=== PATIENT | female | born 1960 | race Caucasian/White ===

== ENCOUNTER 2019-02-28 08:58 | Day surgery (SDC) | payer BC ==
[2019-02-28] MEDS ORDERED: Lactated Ringers 1,000 ML IV SCH (09:15)
[2019-02-28] MEDS ORDERED: Sodium Chloride 0.9% 10 ML Syringe FLUSH PRN (09:15)
[2019-02-28] MEDS ORDERED: Midazolam 1 MG/ML 2 ML SDV ONE (09:42)
[2019-02-28] MEDS ORDERED: Propofol 200 MG/20 ML SDV ONE ×3 (09:42→10:10)
[2019-02-28] MEDS ORDERED: Ketamine 200 MG/20 ML MDV ONE (10:02)
[2019-02-28] MEDS ORDERED: Midazolam 1 MG/ML 2 ML SDV IV ONE (10:42)
[2019-02-28] MEDS ORDERED: Ondansetron 4 MG/2 ML SDV IV ONE (10:42)
[2019-02-28] MEDS ORDERED: Ketamine 200 MG/20 ML MDV IV ONE (10:42)
[2019-02-28] MEDS ORDERED: Propofol 200 MG/20 ML SDV IV ONE (10:42)
--- NOTE | 2019-02-28 12:43 | PCM.PRNOTE ---
- Free Text/Narrative Note: PROCEDURE PERFORMED: Colonoscopy with biopsy PRE-PROCEDURE DIAGNOSIS/INDICATION FOR PROCEDURE: +FIT, no hx of colonoscopy CONSENT: Informed consent was obtained prior to the procedure after discussion of the risks (including pain, bleeding, infection, perforation, missed polyps, inability to completely remove polyps necessitating repeat colonoscopy, adverse reaction to anesthesia, cardiovascular event), benefits and alternatives and expected outcomes. The patient expressed understanding and wished to proceed. Verbal consent given and consent form signed. PROCEDURAL PAUSE: Completed SEDATION: Per anesthesia DESCRIPTION OF PROCEDURE: Patient was placed in the left lateral decubitus position. After adequate sedation and anesthetic was administered, a rectal exam was performed revealing no abnormalities. A lubricated Olympus Video Colonoscope was inserted into the rectum and air insufflation was performed. The colonoscope was advanced through the rectum, sigmoid, descending, transverse, and ascending colon without difficulties. The cecum was reached and the ileocecal valve as well as the appendiceal orifice were identified and pictorially documented. After adequate visualization of the cecum, the scope was withdrawn, giving 360-degree views of the colonic mucosa and retroflexion was performed in the rectum with the following findings noted: Ileocecal valve: Normal Cecum: Normal Ascending colon: Normal Hepatic flexure: Normal Transverse colon: Normal Splenic flexure: Normal Descending colon: [id number] mouth diverticuli Sigmoid colon: [id number] mouth diverticuli Rectum: One <0.5cm polyp removed with cold forceps with complete removal and subsequent hemostasis noted The scope was straightened, air suction performed, and the scope withdrawn without complication. Preparation adequacy good. IMPRESSION: Colonoscopy performed revealing: - One <0.5cm rectal polyp, pathology now pending - Descending and sigmoid diverticulosis PLAN: Will contact the patient when pathology results received with recommendation for repeat colonoscopy. Encourage increased fiber diet and bowel regimen to ensure 1-2 soft bowel movements per day.
== END 2019-02-28 12:35 | disposition home or self-care (01) ==
LOC: KA.SDS 08:58
PROVIDERS: ATTEND Family Medicine
DX: K57.31 Diverticulosis of large intestine without perforation or abscess with bleeding (principal); K62.1 Rectal polyp; E78.2 Mixed hyperlipidemia; E66.9 Obesity, unspecified; F41.9 Anxiety disorder, unspecified; G47.33 Obstructive sleep apnea (adult) (pediatric); G47.00 Insomnia, unspecified; Z88.5 Allergy status to narcotic agent; Z88.8 Allergy status to other drugs, medicaments and biological substances; Z68.43 Body mass index [BMI] 50.0-59.9, adult; Z79.1 Long term (current) use of non-steroidal anti-inflammatories (NSAID); Z79.899 Other long term (current) drug therapy
CPT/HCPCS: 45380; J2250; J2405; J2704; J7120